=== PATIENT | female | born 1985 | race Caucasian/White ===

== ENCOUNTER 2019-12-24 14:27 | Emergency (ER) | payer OTHER, SELFPAY ==
[2019-12-24 15:21] VITALS: BP 124/73; PULSE 70; RESP 16; TEMP 36.8; O2SAT 100; BMI 21.7
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
[2019-12-24] MEDS: dexAMETHasone 2 MG TABLET 10 MG PO (16:34)
== END 2019-12-24 16:41 | disposition home or self-care (01) ==
PROVIDERS: Emergency Provider Emergency Medicine; PCP Internal Medicine
DX: S10.10XA Unspecified superficial injuries of throat, initial encounter (principal); M54.2 Cervicalgia; Y04.8XXA Assault by other bodily force, initial encounter; Y93.9 Activity, unspecified; Y92.219 Unspecified school as the place of occurrence of the external cause; Y99.9 Unspecified external cause status
CPT/HCPCS: 70490; 99283; 99284; J8540

== ENCOUNTER 2020-02-11 09:23 | Outpatient (REF) | payer OTHER, SELFPAY | END 2020-02-11 09:24 | disposition home or self-care (01) | LOC: HO.LAB 09:23 | PROVIDERS: Visit Provider Nurse Practitioner Family | DX: J06.9 Acute upper respiratory infection, unspecified (principal); Z20.828 Contact with and (suspected) exposure to other viral communicable diseases | CPT/HCPCS: U0003 ==

== ENCOUNTER 2020-05-26 08:07 | Outpatient (REF) | payer OTHER, SELFPAY ==
[2020-05-29 01:26] LABS: HPV mRNA E6/E7 rflx Not Detected (Not Detected)
== END 2020-05-26 08:08 | disposition home or self-care (01) ==
LOC: HO.LAB 08:07
PROVIDERS: PCP Internal Medicine; Visit Provider Advanced Practice Midwife
DX: Z01.419 Encounter for gynecological examination (general) (routine) without abnormal findings (principal); Z11.51 Encounter for screening for human papillomavirus (HPV)
CPT/HCPCS: 36415; 87624; 88142

== ENCOUNTER 2020-07-08 10:14 | Outpatient (REF) | payer OTHER, SELFPAY ==
[2020-07-08 11:25] LABS: MANUAL DIFF FLAG NO
[2020-07-08 11:37] LABS: Basophils Percent Auto 0.2 % (0-2); Eosinophils Absolute Auto 0.2 X10*3/uL (0.0-0.4); Hematocrit 38.7 % (37-47); Hemoglobin 13.1 g/dl (12.0-16.0); Lymphocytes Absolute Auto 1.4 X10*3/uL (1.2-4.9); Lymphocytes Percent Auto 33.7 % (20-40); Mean Corpuscular HGB Conc 33.9 g/dl (31.0-35.0); Mean Corpuscular Hemoglobin 30.5 pg (27.0-33.0); Monocytes Absolute Auto 0.5 X10*3/uL (0.1-1.2); Monocytes Percent Auto 12.9 % (2-11); Neutrophils Percent Auto 49.2 % (45-73); Platelet Count 212 X10*3/uL (160-400); Red Cell Distribution Width 11.7 % (11.0-16.0)
[2020-07-08 12:19] LABS: TSH reflex Free T4 1.39 uIU/mL (0.32-4.0)
[2020-07-08 12:22] LABS: Alanine Aminotransferase 12 U/L (0-31); Albumin Level 4.9 g/dL (3.5-5.0); Alkaline Phosphatase 43 U/L (39-117); Anion Gap 12 (12-20); Aspartate Amino Transferase 17 U/L (5-31); Bilirubin Direct 0.3 mg/dL (0.0-0.5); Bilirubin Total 0.5 mg/dL (0.0-1.0); Blood Urea Nitrogen 12 mg/dL (9-16); Calcium 9.6 mg/dL (8.4-10.2); Carbon Dioxide 27 mmol/L (22-29); Chloride 105 mmol/L (96-108); Cholesterol 175 mg/dL; Estimated Glomerular Filt Rate > 60; Glucose Fasting 81 mg/dL (60-99); HDL Cholesterol 108 mg/dL; LDL Cholesterol Calculated 58 mg/dl; Potassium 4.1 mmol/L (3.3-5.1); Sodium 140 mmol/L (135-145); Total Protein 7.6 g/dL (6.5-8.0); Triglycerides 46 mg/dL
== END 2020-07-08 10:15 | disposition home or self-care (01) ==
LOC: HO.HMGCLDS 10:14
PROVIDERS: PCP Internal Medicine; Visit Provider Internal Medicine
DX: Z00.01 Encounter for general adult medical examination with abnormal findings (principal); R07.9 Chest pain, unspecified; R10.13 Epigastric pain; R21 Rash and other nonspecific skin eruption; Z91.09 Other allergy status, other than to drugs and biological substances
CPT/HCPCS: 36415; 80048; 80053; 80061; 80076; 84443; 85025; 86787

== ENCOUNTER 2021-03-01 12:01 | Outpatient (REF) | payer OTHER, SELFPAY ==
[2021-03-01 13:16] LABS: Influenza A PCR NEGATIVE (Negative); Influenza B PCR NEGATIVE (Negative); Resp Syncy Virus RNA Qual PCR NEGATIVE (Negative); SARS COV2 PCR INHOUSE POSITIVE (Negative)
== END 2021-03-01 12:02 | disposition home or self-care (01) ==
LOC: HO.LNP 12:01
PROVIDERS: Visit Provider Physician Assistant
DX: Z20.822 Contact with and (suspected) exposure to COVID-19 (principal)
CPT/HCPCS: 0241U

== ENCOUNTER 2022-01-11 09:49 | Outpatient (REF) | payer OTHER, SELFPAY ==
[2022-01-14 14:07] LABS: Transglutaminase Ab IgG <1.0 U/mL; Transglutaminase IgA <1.0 U/mL
== END 2022-01-11 09:50 | disposition home or self-care (01) ==
LOC: HO.LAB 09:49
PROVIDERS: PCP Internal Medicine; Visit Provider Nurse Practitioner Family
DX: R10.9 Unspecified abdominal pain (principal)
CPT/HCPCS: 36415; 86364

== ENCOUNTER 2022-01-12 17:12 | Outpatient (REF) | payer OTHER, SELFPAY ==
[2022-01-14 13:32] LABS: H Pylori Breath Test Negative (Negative)
== END 2022-01-12 17:13 | disposition home or self-care (01) ==
LOC: HO.LNP 17:12
PROVIDERS: Visit Provider Nurse Practitioner Family
DX: Z11.2 Encounter for screening for other bacterial diseases (principal)
CPT/HCPCS: 83013

== ENCOUNTER 2022-02-03 08:46 | Outpatient (REF) | payer OTHER, SELFPAY ==
--- NOTE | ~2022-02-03 | XR_ITS ---
EXAMINATION: XR CHEST CLINICAL INFORMATION: Acute bronchitis. COMPARISON: Chest radiograph dated 06/13/2014. TECHNIQUE: 2 views of the chest were obtained. FINDINGS: No significant abnormality is noted involving the heart, lungs, mediastinum, bony thorax or soft tissues. XR/XR chest 2V IMPRESSION: No acute cardiopulmonary process.
[2022-02-03 12:21] LABS: Influenza A PCR NEGATIVE (Negative); Influenza B PCR NEGATIVE (Negative); Resp Syncy Virus RNA Qual PCR POSITIVE (Negative); SARS COV2 PCR INHOUSE NEGATIVE (Negative)
== END 2022-02-03 08:47 | disposition home or self-care (01) ==
LOC: HO.HMGCX 08:46
PROVIDERS: PCP Internal Medicine; Visit Provider Internal Medicine
DX: Z20.822 Contact with and (suspected) exposure to COVID-19 (principal); J20.9 Acute bronchitis, unspecified; R09.89 Other specified symptoms and signs involving the circulatory and respiratory systems
CPT/HCPCS: 0241U; 71046

== ENCOUNTER 2022-12-09 07:31 | Outpatient (AMB) | payer OTHER, SELFPAY ==
--- NOTE | 2022-12-09 07:32 | MHC.PC.OV ---
Intake Visit Reasons: Med review Allergies soy Allergy (Intermediate, Verified 12/09/22 07:33) rash, fatigue Environmental Allergy (Unknown, Uncoded 12/09/22 07:33) Unknown Medication List - Last Reconciled 12/09/22 by Edilia Hernadez MD fexofenadine ([facility]) PO DAILY pantoprazole 40 mg PO DAILY Tobacco use date assessed: 12/09/22 Dental Screening Dental Screen Date: 12/09/22 Did you have a dental visit in the last 12 months?: Yes Did you have a dental problem in the last 6 months where you did not have access to dental care?: No Was dental information given to patient?: Patient has dentist HPI Med review HPI Details Patient is 37-year-old female this is a telemedicine video conference medication refill Patient was last seen March of this year, reviewing that visit note I see that she was seeing a pyroglazer and taking pantoprazole 40 mg through them They recommended that patient have EGD done but patient was anxious about it and she had never went. She also continued to drink alcohol but not that much. We talked about toxic effects of alcohol it will help if she can stop drinking altogether. Her dyspepsia symptoms are stable at 40 mg pantoprazole she would like to cut down the dose to 20 and see if that is enough as well. I have sent pantoprazole 20 mg for the patient We will book physical exam appointment in 6 months. [facility] Medical History History of RSV infection GERD (gastroesophageal reflux disease) History of cellulitis Surgical History No pertinent past surgical history Family History Father Heart disease CVD (cardiovascular disease) Mental health disorder Mother HTN (hypertension) Mental health disorder Maternal Grandmother Cancer of kidney Maternal Grandfather Unknown family medical history Paternal Grandmother Heart disease Paternal Grandfather Heart disease Brother Substance use disorder Sister No problems noted. Social History Housing: House Alcohol intake: current Alcohol intake frequency: a few times a week Patient Tobacco Use Status: Former Tobacco user e-Cigarette/Vaping Use: Never Used service: No Current occupational status: employed Cognitive needs: No Hearing needs: No Vision needs: Yes Questionnaire PHQ-9 Over the last 2 weeks, how often have you been bothered by any of the following problems? 1. Little interest or pleasure in doing things: not at all 2. Feeling down, depressed, or hopeless: not at all 3. Trouble falling or staying asleep, or sleeping too much: not at all 4. Feeling tired or having little energy: not at all 5. Poor appetite or overeating: not at all 6. Feeling bad about yourself - or that you are a failure or have let yourself or your family down: not at all 7. Trouble concentrating on things, such as reading the newspaper or watching television: not at all 8. Moving or speaking so slowly that other people could have noticed. Or the opposite - being so fidgety or restless that you have been moving around a lot more than usual: not at all 9. Thoughts that you would be better off or of hurting yourself in some way: not at all Total score: 0 Depression Screening Interpretation: Negative Depression Screening Done: Yes 32499 - PHQ-9 Billing: Yes Source: Developed by Drs. Abdifatah Caputo, Carolyn Murdock, Derek Fiore and colleagues, with an educational ariela from [employer]. Thrive Questionnaire Date Thrive assessed: 12/09/22 I am a: Patient What is your living situation today?: I have a steady place to live Within the past 12 months, did the food you bought not last and you didn't have the money to get more?: Never true Within the past 12 months, did you worry whether your food would run out before you got money to buy more?: Never true Do you have trouble paying for medicines?: No Do you have trouble getting transportation to medical appointments?: No Do you have trouble paying your heating and electricity bill?: No Do you have trouble taking care of your child, family member or friend?: No Do you have trouble with day-to-day activities such as bathing, preparing meals, shopping, managing finances, etc.?: No Are you currently unemployed and looking for a job?: No Are you interested in more education?: No Currently or been in a relationship where the following occur: no concerns reported AUDIT C Alcohol Use Questionnaire (AUDIT-C) 1. How often do you have a drink containing alcohol?: 2-4 times a month 2. How many drinks containing alcohol do you have on a typical day when you are drinking?: 1 or 2 3. How often do you have six or more drinks on one occasion?: Never Total Score: 2 RENEE-7 AMB Questionnaire RENEE-7 Date RENEE - 7 assessed: 12/09/22 Feeling nervous, anxious, or on edge: 0 = Not at all Not being able to stop or control worryin = Not at all Worrying too much about different things: 0 = Not at all Trouble relaxin = Not at all Being so restless that it is hard to sit still: 0 = Not at all Becoming easily annoyed or irritable: 0 = Not at all Feeling afraid as if something awful might happen: 0 = Not at all Total RENEE-7 score (0-4 normal; 5-9 mild; 10-14 moderate; 15-21 severe): 0 Source: Developed by Drs. Abdifatah Caputo, Carolyn Murdock, Derek Fiore and colleagues, with an educational ariela from [employer]. RENEE-7 Assessment Billing RENEE-7 Assessment Tool: RENEE-7 Assessment 21225 Review of Systems Const Denies chills and Denies fever(s) ENT Denies epistaxis and Denies nasal discharge Card Denies chest pain Resp Denies chest congestion, Denies cough and Denies hemoptysis GI Denies diarrhea and Denies nausea Skin/Breast Denies rash Neuro Reports no additional complaints Psych Reports no additional complaints Endo Reports no additional complaints Physical exam (Primary Care) Tobacco/Smoking Status: Tobacco use Status Tobacco use date assessed 12/09/22 12/09/22 07:35 Patient Tobacco Use Status Former Tobacco user 12/09/22 07:35 e-Cigarette/Vaping Use Never Used 12/09/22 07:35 Depression Screening Interpretation: Negative Thrive Assessment: Date of Thrive Assessment Date Thrive assessed 12/09/22 12/09/22 07:35 Currently or been in a relationship where the following occur: no concerns reported Telehealth Telehealth Location of provider rendering services: practice address Location of patient: address on file Patient Identification confirmed using: Name, : Yes Telehealth method: video Patient verbally consented to treatment: Yes Patient verbally consented to billing insurance company: Yes Patient informed of any privacy concerns related to visit: Yes Minutes spent on Phone/Video with Pt.: 14 Assessment and Plan Assessment & Plan (1) Chronic GERD: Code(s): K21.9 - Gastro-esophageal reflux disease without esophagitis (2) Alcohol cessation counseling: Code(s): Z71.41 - Alcohol abuse counseling and surveillance of alcoholic (3) Anxiety, generalized: Code(s): F41.1 - Generalized anxiety disorder Plan Patient is 37-year-old female this is a telemedicine video conference medication refill Patient was last seen March of this year, reviewing that visit note I see that she was seeing a pyroglazer and taking pantoprazole 40 mg through them They recommended that patient have EGD done but patient was anxious about it and she had never went. She also continued to drink alcohol but not that much. We talked about toxic effects of alcohol it will help if she can stop drinking altogether. I did offer her medication for anxiety but patient is reluctant to take that at this point she will get back to me if she germania mine. Her dyspepsia symptoms are stable at 40 mg pantoprazole she would like to cut down the dose to 20 and see if that is enough as well. I have sent pantoprazole 20 mg for the patient We will book physical exam appointment in 6 months. Medications: Changed From pantoprazole take one tablet half an hour before breakfast 40 mg PO DAILY 30 tabs 0RF K21.9 - Gastro-esophageal reflux disease without esophagitis To pantoprazole take one tablet half an hour before breakfast 20 mg PO DAILY 90 tabs 0RF K21.9 - Gastro-esophageal reflux disease without esophagitis Coding Level of Care Code Est Pt Level 3 (48571) Diagnoses Chronic GERD K21.9 Alcohol cessation counseling Z71.41 Anxiety, generalized F41.1 Additional Codes RENEE-7 Assessment Billing - RENEE-7 Assessment Tool: RENEE-7 Assessment 49267 ([id number])
== END 2022-12-09 09:33 | disposition home or self-care (01) ==
PROVIDERS: PCP Internal Medicine; Visit Provider Internal Medicine
DX: K21.9 Gastro-esophageal reflux disease without esophagitis (principal); Z71.41 Alcohol abuse counseling and surveillance of alcoholic; F41.1 Generalized anxiety disorder
CPT/HCPCS: 99213

== ENCOUNTER 2022-12-27 08:08 | Outpatient (AMB) | payer OTHER, SELFPAY ==
[2022-12-27 08:47] VITALS: BP 120/60; PULSE 83; TEMP 36.8; O2SAT 99; BMI 21.5
--- NOTE | 2022-12-27 08:47 | MHC.OFFWIV ---
Intake Vital Signs 12/27/22 08:47 Height 5 ft 6 in Weight 133 lb BMI 21.5 BP 120/60 Blood Pressure Location Lt brachial Position Sitting Pulse 83 Pulse Source Pulse Oximeter Temp 98.2 F Temp Source Temporal Artery Scan Pulse Oximetry (%) 99 Intake Visit Reasons: EP Cold Symptoms Intake Note: pt is here for c/o sore throat, body aches Patient Tobacco Use Status: Former Tobacco user Allergies soy Allergy (Intermediate, Verified 12/27/22 09:13) rash, fatigue Environmental Allergy (Unknown, Uncoded 12/27/22 09:13) Unknown Medication List - Last Reconciled 12/27/22 by Bro Gonzalez MD fexofenadine ([facility]) PO DAILY pantoprazole 20 mg PO DAILY Do you need a note to return to daycare/school/sports/work: Yes HPI EP Cold Symptoms HPI Details Patient presents for a sick visit. Reporting symptoms of sinus congestion, sore throat and difficulty swallowing. Low-grade fever. No family member is sick. No recent travel. Patient reports symptoms of malaise and fatigue. [facility] Medical History History of RSV infection GERD (gastroesophageal reflux disease) History of cellulitis Surgical History No pertinent past surgical history Family History Father Heart disease CVD (cardiovascular disease) Mental health disorder Mother HTN (hypertension) Mental health disorder Maternal Grandmother Cancer of kidney Maternal Grandfather Unknown family medical history Paternal Grandmother Heart disease Paternal Grandfather Heart disease Brother Substance use disorder Sister No problems noted. Social History Housing: House Alcohol intake: current Alcohol intake frequency: a few times a week Patient Tobacco Use Status: Former Tobacco user e-Cigarette/Vaping Use: Never Used service: No Current occupational status: employed Cognitive needs: No Hearing needs: No Vision needs: Yes Physical Exam Vital Signs: Last Vital Signs Temp 98.2 F 12/27/22 08:47 Pulse 83 12/27/22 08:47 BP 120/60 12/27/22 08:47 Pulse Ox 99 12/27/22 08:47 BMI result Body Mass Index 21.5 Const General: cooperative and healthy appearing Nutritional Appearance: well nourished Orientation/consciousness: patient oriented x3 Limitations: no limitations HEENT Head: Yes normal to inspection Eyes General: appearance normal, both eyes and all related structures Neck Neck: Yes normal visual inspection Chest Chest palpation & inspection: normal palpation of entire chest wall Resp Effort & Inspection: normal respiratory effort Neuro General: patient oriented x3 Results AMB Rapid Strep AMB Rapid Strep Negative Last Edit by José Luis Walton CMA on 12/27/22 09:04 Results Reviewed Results Reviewed: Laboratory Last Values Strep Scn [facility] Negative 12/27/22 08:55 Assessment & Plan Assessment & Plan (1) URI (upper respiratory infection): Code(s): J06.9 - Acute upper respiratory infection, unspecified Plan: Antibiotics ordered. Increase fluid intake. Tylenol for aches and pains. If symptoms worsen, follow-up here for a recheck. Orders: Orders AMB Rapid Strep Screen Today Z13.9 - Encounter for screening, unspecified Coding Level of Care Code Est Pt Level 3 (25582) Diagnoses URI (upper respiratory infection) J06.9
== END 2022-12-27 09:18 | disposition home or self-care (01) ==
PROVIDERS: PCP Internal Medicine; Visit Provider Internal Medicine
DX: J06.9 Acute upper respiratory infection, unspecified (principal); Z13.9 Encounter for screening, unspecified
CPT/HCPCS: 87880; 99213

== ENCOUNTER 2023-06-27 13:56 | Outpatient (AMB) | payer OTHER, SELFPAY ==
--- NOTE | 2023-06-27 13:59 | MHC.PC.OV ---
Vital Signs 06/27/23 14:00 Height 5 ft 6 in Weight 136 lb 2 oz BMI 22.0 BP 124/80 Blood Pressure Location Rt brachial Position Sitting Pulse 83 Pulse Source Pulse Oximeter Pulse Oximetry (%) 96 Oxygen Delivery Method Room Air Intake Visit Reasons: Annual PE Allergies soy Allergy (Intermediate, Verified 06/27/23 14:00) rash, fatigue Environmental Allergy (Unknown, Uncoded 12/27/22 09:13) Unknown Medication List - Last Reconciled 06/27/23 by Edilia Hernadez MD fexofenadine (Corinna Allergy) PO DAILY pantoprazole 20 mg PO DAILY Tobacco use date assessed: 06/27/23 Dental Screening Dental Screen Date: 06/27/23 Did you have a dental visit in the last 12 months?: Yes Did you have a dental problem in the last 6 months where you did not have access to dental care?: No Was dental information given to patient?: Patient has dentist HPI Annual PE HPI Details Patient is a 38 year female came in for physical examination Patient is dealing with drug addiction in brother and has applied for custody of 5-year-old son She said that she is feeling to try medication for anxiety as 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 because she clench her teeth a lot She agreed to take escitalopram 5 mg daily Allergies are manageable with the help of Corinna GERD is stable with pantoprazole 20 mg Lab order placed to be done fasting On examination she has a lump on right breast which is chronic however she is at that age where she will be having mammograms now I have also ordered diagnostic mammogram and ultrasound We will book a telemedicine visit in 3 months to follow-up FORMERLY [facility], [facility] Medical History History of RSV infection GERD (gastroesophageal reflux disease) History of cellulitis Surgical History No pertinent past surgical history Family History Father Heart disease CVD (cardiovascular disease) Mental health disorder Mother HTN (hypertension) Mental health disorder Maternal Grandmother Cancer of kidney Maternal Grandfather Unknown family medical history Paternal Grandmother Heart disease Paternal Grandfather Heart disease Brother Substance use disorder Sister No problems noted. Social History Housing: House Alcohol intake: current Alcohol intake frequency: a few times a week Patient Tobacco Use Status: Former Tobacco user e-Cigarette/Vaping Use: Never Used service: No Current occupational status: employed Cognitive needs: No Hearing needs: No Vision needs: Yes Questionnaire PHQ-9 Over the last 2 weeks, how often have you been bothered by any of the following problems? 1. Little interest or pleasure in doing things: several days 2. Feeling down, depressed, or hopeless: more than half the days 3. Trouble falling or staying asleep, or sleeping too much: nearly every day 4. Feeling tired or having little energy: nearly every day 5. Poor appetite or overeating: not at all 6. Feeling bad about yourself - or that you are a failure or have let yourself or your family down: several days 7. Trouble concentrating on things, such as reading the newspaper or watching television: several days 8. Moving or speaking so slowly that other people could have noticed. Or the opposite - being so fidgety or restless that you have been moving around a lot more than usual: several days 9. Thoughts that you would be better off or of hurting yourself in some way: not at all Total score: 12 Depression Screening Interpretation: Positive Depression Screening Follow-up: New Medication prescribed Depression Screening Done: Yes 39549 - PHQ-9 Billing: Yes Source: Developed by Drs. Abdifatah Caputo, Carolyn Murdock, Derek Fiore and colleagues, with an educational ariela from [employer]. Thrive Questionnaire Date Thrive assessed: 06/27/23 I am a: Patient What is your living situation today?: I have a steady place to live Within the past 12 months, did the food you bought not last and you didn't have the money to get more?: Never true Within the past 12 months, did you worry whether your food would run out before you got money to buy more?: Never true Do you have trouble paying for medicines?: No Do you have trouble getting transportation to medical appointments?: No Do you have trouble paying your heating and electricity bill?: No Do you have trouble taking care of your child, family member or friend?: No Do you have trouble with day-to-day activities such as bathing, preparing meals, shopping, managing finances, etc.?: No Are you currently unemployed and looking for a job?: No Are you interested in more education?: No Please select the resources that you would like help with: None Currently or been in a relationship where the following occur: no concerns reported THRIVE Score: 0 AUDIT C Alcohol Use Questionnaire (AUDIT-C) 1. How often do you have a drink containing alcohol?: Monthly or less 2. How many drinks containing alcohol do you have on a typical day when you are drinking?: 1 or 2 3. How often do you have six or more drinks on one occasion?: Never Total Score: 1 Score Reviewed/Action Taken: Yes RENEE-7 AMB Questionnaire RENEE-7 Date RENEE - 7 assessed: 06/27/23 Feeling nervous, anxious, or on edge: 3 = Nearly every day Not being able to stop or control worryin = Nearly every day Worrying too much about different things: 3 = Nearly every day Trouble relaxin = Nearly every day Being so restless that it is hard to sit still: 2 = More than half the days Becoming easily annoyed or irritable: 2 = More than half the days Feeling afraid as if something awful might happen: 3 = Nearly every day Total RENEE-7 score (0-4 normal; 5-9 mild; 10-14 moderate; 15-21 severe): 19 Source: Developed by Drs. Abdifatah Caputo, Carolyn Murdock, Derek Fiore and colleagues, with an educational ariela from [employer]. RENEE-7 Assessment Billing RENEE-7 Assessment Tool: RENEE-7 Assessment 98213 Review of Systems Const Denies chills, Denies fever(s) and Denies headache(s) Eyes Denies blurry vision ENT Denies headache(s), Denies nasal discharge, Denies nasal obstruction, Denies odynophagia and Denies sinus pain Card Denies chest pain at rest and Denies chest pain with activity Resp Denies cough and Denies hemoptysis GI Denies diarrhea, Denies odynophagia, Denies vomiting and Denies hematemesis Reports as per HPI Musc Denies abnormal gait Skin/Breast Reports as per HPI Neuro Denies Neuro-related abnormal movements, Denies Abnormal speech present, Denies abnormal gait, Denies headache(s) and Denies Sensory deficit (Neuro) Psych Denies mood swings and Denies paranoia Endo Reports as per HPI Real/Lymph Reports as per HPI Aller/Immun Reports as per HPI Physical exam (Primary Care) Vital Signs: Last Vital Signs Pulse 83 06/27/23 14:00 BP 124/80 06/27/23 14:00 Pulse Ox 96 06/27/23 14:00 Oxygen Delivery Method Room Air 06/27/23 14:00 BMI result Body Mass Index 22.0 Tobacco/Smoking Status: Tobacco use Status Tobacco use date assessed 06/27/23 06/27/23 14:02 Patient Tobacco Use Status Former Tobacco user 06/27/23 14:02 e-Cigarette/Vaping Use Never Used 06/27/23 14:02 PHQ-9: PHQ-9 Score PHQ-9: Total score 12 06/27/23 14:08 Depression Screening Interpretation: Positive Depression Screening Follow-up: New Medication prescribed Thrive Assessment: Date of Thrive Assessment Date Thrive assessed 06/27/23 06/27/23 14:08 Currently or been in a relationship where the following occur: no concerns reported Const General: cooperative, comfortable and no acute distress Orientation/consciousness: patient oriented x3 HENMT Head: Yes normocephalic and Yes atraumatic Eyes General: appearance normal, both eyes and all related structures Pupils: Equal, round and reactive pupils present EOM: EOMs intact bilaterally Neck Neck: Yes supple and No lymphadenopathy Thyroid: Thyroid normal Lymphatic: no lymphadenopathy noted Chest Chest/axillae images: 1. Lump felt Resp Effort & Inspection: normal respiratory effort and able to speak in complete sentences Auscultation: clear to auscultation bilaterally Cardio Heart sounds: S1 normal heart sound present and S2 normal heart sound present GI Palpation (GI): Soft to palpation and nontender Auscultation: normal bowel sounds General: Yes no CVA tenderness Back/Spine/Pelvis Back: no CVA tenderness Skin General skin exam: elasticity normal and turgor normal Neuro General: patient oriented x3 and gait normal Cranial nerves: Yes Equal, round and reactive pupils present Speech: No Abnormal speech present Sensory Exam: No Sensory deficit (Neuro) Coordination: tandem gait normal and Romberg test negative Extrem General: Yes normal exam except as noted and No edema Assessment and Plan Assessment & Plan (1) Encounter for general adult medical examination with abnormal findings: Code(s): Z00.01 - Encounter for general adult medical examination with abnormal findings (2) Breast lump on right side at 11 o'clock position: Code(s): N63.11 - Unspecified lump in the right breast, upper outer quadrant (3) Environmental allergies: Code(s): Z91.09 - Other allergy status, other than to drugs and biological substances (4) Rash: Code(s): R21 - Rash and other nonspecific skin eruption (5) Anxiety, generalized: Code(s): F41.1 - Generalized anxiety disorder Plan Patient is a 38 year female came in for physical examination Patient is dealing with drug addiction in brother and has applied for custody of 5-year-old son She said that she is feeling to try medication for anxiety as 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 because she clench her teeth a lot She agreed to take escitalopram 5 mg daily Allergies are manageable with the help of Corinna GERD is stable with pantoprazole 20 mg Lab order placed to be done fasting On examination she has a lump on right breast which is chronic however she is at that age where she will be having mammograms now I have also ordered diagnostic mammogram and ultrasound We will book a telemedicine visit in 3 months to follow-up Orders: Orders MM tomosynthesis screening BI Today N63.11 - Unspecified lump in the right breast, upper outer quadrant MM tomosynthesis diagnostic RT Today N63.11 - Unspecified lump in the right breast, upper outer quadrant Complete Blood Count Auto Diff Today F41.1 - Generalized anxiety disorder, R21 - Rash and other nonspecific skin eruption, Z00.01 - Encounter for general adult medical examination with abnormal findings, Z91.09 - Other allergy status, other than to drugs and biological substances Lipid Panel Today F41.1 - Generalized anxiety disorder, R21 - Rash and other nonspecific skin eruption, Z00.01 - Encounter for general adult medical examination with abnormal findings, Z91.09 - Other allergy status, other than to drugs and biological substances US breast RT complete Today N63.11 - Unspecified lump in the right breast, upper outer quadrant Comprehensive [place]. Panel Fast Today F41.1 - Generalized anxiety disorder, R21 - Rash and other nonspecific skin eruption, Z00.01 - Encounter for general adult medical examination with abnormal findings, Z91.09 - Other allergy status, other than to drugs and biological substances TSH reflex Free T4 Today F41.1 - Generalized anxiety disorder, R21 - Rash and other nonspecific skin eruption, Z00.01 - Encounter for general adult medical examination with abnormal findings, Z91.09 - Other allergy status, other than to drugs and biological substances Medications: New escitalopram oxalate (Lexapro) 5 mg PO DAILY 30 tabs 0RF Coding Level of Care Code Est Pt Level 3 (74048) Est Pt Prev Care 40-64y(70794) Diagnoses Encounter for general adult medical examination with abnormal findings Z00.01 Breast lump on right side at 11 o'clock position N63.11 Environmental allergies Z91.09 Rash R21 Anxiety, generalized F41.1 Additional Codes RENEE-7 Assessment Billing - RENEE-7 Assessment Tool: RENEE-7 Assessment 36994 ([id number])
[2023-06-27 14:00] VITALS: BP 124/80; PULSE 83; O2SAT 96; BMI 22.0
== END 2023-06-27 14:31 | disposition home or self-care (01) ==
PROVIDERS: PCP Internal Medicine; Visit Provider Internal Medicine
DX: Z00.01 Encounter for general adult medical examination with abnormal findings (principal); N63.11 Unspecified lump in the right breast, upper outer quadrant; F41.1 Generalized anxiety disorder; Z91.09 Other allergy status, other than to drugs and biological substances; R21 Rash and other nonspecific skin eruption
CPT/HCPCS: 96127; 99213; 99396

== ENCOUNTER 2023-08-03 14:53 | Outpatient (REF) | payer OTHER, SELFPAY ==
--- NOTE | ~2023-08-03 | US_ITS ---
EXAMINATION: MM DIAGNOSTIC DIGITAL BREAST TOMOSYNTHESIS, BILATERAL US BREAST LIMITED, RIGHT MAMMOGRAPHY: CLINICAL INFORMATION: 38-year-old female complaining of palpable lump right breast upper outer quadrant approximately 11:00. No additional complaints. COMPARISON: Mammography: 06/26/2015 diagnostic mammogram and right breast ultrasound. TECHNIQUE: Digital breast tomosynthesis is performed in both the craniocaudal and mediolateral oblique views along with computer-aided detection (CAD). Synthesized 2D images are generated from the tomosynthesis. In addition, full-field right 3-D mediolateral view was obtained, as well as small paddle spot compression 3-D views of the right breast in the CC and MLO projections, overlying the area of concern. This was followed by targeted right ultrasound. FINDINGS: The breasts are extremely dense, which lowers the sensitivity of mammography (ACR BI-RADS breast composition Category d). BB marker has been placed by the technologist in the upper outer quadrant of the right breast, anterior one third, marking the area of palpable concern with the aid of the patient. There is no definite underlying mammographic mass, abnormal calcifications, or area of architectural distortion. Only heterogeneously dense breast parenchyma is identified. Otherwise, there are no suspicious masses, suspicious grouped calcifications, or areas of architectural distortion in either breast. The extremely dense parenchymal pattern is stable from the prior exam of 2016. There is no skin or axillary suspicious finding. ULTRASOUND: CLINICAL INFORMATION: As above. COMPARISON: 06/26/2015. TECHNIQUE: Targeted sonographic evaluation right breast was performed using a high frequency linear transducer. Attention was given to the 10:00 to 1:00 axis right breast to include the area of palpable concern at 11:00. Selected archived documentation. FINDINGS: RIGHT BREAST: There is normal-appearing extremely dense breast tissue present. There is no mass, cystic abnormality, abnormal shadowing, or architectural abnormality in the region of palpable concern right breast 11:00 or elsewhere in the upper outer quadrant. US/US breast RT limited mamm only IMPRESSION: -There are no findings suggestive of malignancy in either breast. -Palpable abnormality right breast 11:00 axis shows no mammographic or sonographic correlate. Only normal extremely dense breast tissue is identified. Recommend clinical management -Otherwise, recommend resuming routine annual screening mammography. -In patients with this breast density, screening breast ultrasound may serve as a valuable screening adjunct, depending on risk factors and usually performed 6 months in between screening mammography exams. OVERALL ASSESSMENT: Mammography: BI-RADS 1 - Negative Ultrasound: BI-RADS 1 - Negative RECOMMENDATION: 1. Patient should be managed based on the clinical impression. 2. Otherwise, routine annual screening mammography. Results were provided to the patient at time of visit by the technologist. This patient's information was entered into a reminder system with a target due date for their next mammogram.
== END 2023-08-03 14:54 | disposition home or self-care (01) ==
LOC: HO.MAMMO 14:53
PROVIDERS: PCP Internal Medicine; Visit Provider Internal Medicine
DX: N63.11 Unspecified lump in the right breast, upper outer quadrant (principal)
CPT/HCPCS: 76642; 77062; 77066

== ENCOUNTER → 2023-08-03 15:30 | Outpatient (BNV) | payer OTHER, SELFPAY | PROVIDERS: PCP Internal Medicine; Visit Provider Radiology Diagnostic Radiology | DX: R92.333 Mammographic heterogeneous density, bilateral breasts (principal) | CPT/HCPCS: 76642; 77062; 77066 ==

== ENCOUNTER 2023-08-30 08:50 | Outpatient (AMB) | payer OTHER, SELFPAY ==
--- NOTE | 2023-08-30 09:01 | AM.OFFWIN_ITS ---
Intake Vital Signs 08/30/23 09:02 Height 5 ft 6 in Weight 134 lb BMI 21.6 BP 104/68 Blood Pressure Location Lt brachial Position Sitting Pulse 72 Pulse Source Pulse Oximeter Temp 98.1 F Temp Source Oral Pulse Oximetry (%) 97 Oxygen Delivery Method Room Air Intake Visit Reasons: EP ?UTI Intake Note: pt here c/o ? UTI. Symptoms: Urgency, burning. Started Sunday 08/27 Patient Tobacco Use Status: Former Tobacco user Allergies soy Allergy (Intermediate, Verified 08/30/23 09:02) rash, fatigue Environmental Allergy (Unknown, Uncoded 08/30/23 09:02) Unknown Do you need a note to return to daycare/school/sports/work: Yes HPI HPI Comments History of Present Illness Details 38 y/o female patient who presents to [facility] in clinic with c/o Urinary symptoms associated with vaginal discharge, odor and burning with urination since August 27. Sexually active with 1 male partner no concerns for STIs. FORMERLY [facility] Medical History History of RSV infection GERD (gastroesophageal reflux disease) History of cellulitis Surgical History No pertinent past surgical history Family History Father Heart disease CVD (cardiovascular disease) Mental health disorder Mother HTN (hypertension) Mental health disorder Maternal Grandmother Cancer of kidney Maternal Grandfather Unknown family medical history Paternal Grandmother Heart disease Paternal Grandfather Heart disease Brother Substance use disorder Sister No problems noted. Social History Housing: House Alcohol intake: current Alcohol intake frequency: a few times a week Patient Tobacco Use Status: Former Tobacco user e-Cigarette/Vaping Use: Never Used service: No Current occupational status: employed Cognitive needs: No Hearing needs: No Vision needs: Yes Review of Systems Const All systems reviewed & are unremarkable except as noted in HPI and below Physical Exam Vital Signs: Last Vital Signs Temp 98.1 F 08/30/23 09:02 Pulse 72 08/30/23 09:02 BP 104/68 08/30/23 09:02 Pulse Ox 97 08/30/23 09:02 Oxygen Delivery Method Room Air 08/30/23 09:02 BMI result Body Mass Index 21.6 Const General: comfortable and no acute distress Nutritional Appearance: thin Orientation/consciousness: patient oriented x3 GI Palpation (GI): Soft to palpation, not firm, nontender, no guarding and No hepatosplenomegaly present External Female Exam: erythema and externally tender Speculum Exam - Vagina: abnormal vaginal discharge white, malodorous and frothy and erythematous Speculum Exam - Cervix: normal palpation and Cervical os open Bimanual exam- vagina & uterus: normal bimanual exam and normal palpation OB/external & speculum: Cervical os open Neuro General: patient oriented x3, gait normal and moves all extremities Psych Speech and movement: Normal speech and movement present Results AMB Urinalysis, Automated UA Leukoctes 15 Inez/uL Last Edit by Hernán Fink CMA on 08/30/23 09:17 UA Nitrite Negative Last Edit by Hernán Fink CMA on 08/30/23 09:17 UA Urobilinogen 0.2 mg/dL Last Edit by Hernán Fink CMA on 08/30/23 09:17 UA Protein 15 mg/dL Last Edit by Hernán Fink CMA on 08/30/23 09:17 UA pH 6.0 Last Edit by Hernán Fink CMA on 08/30/23 09:17 UA Blood 10 Rayray/uL Last Edit by Hernán Fink CMA on 08/30/23 09:17 UA Specific [place] 1.015 Last Edit by Hernán Fink CMA on 08/30/23 09:17 UA Ketone Negative Last Edit by Hernán Fink CMA on 08/30/23 09:17 UA Bilirubin 0 mg/dL Last Edit by Hernán Fink CMA on 08/30/23 09:17 UA Glucose 0 mg/dL Last Edit by Hernán Fink CMA on 08/30/23 09:17 Results Reviewed Results Reviewed: Laboratory Last Values Urine pH (Auto) 6.0 08/30/23 09:15 Specific [place] (Auto) 1.015 08/30/23 09:15 Urine Protein (Auto) 15 mg/dL 08/30/23 09:15 Glucose (UA)(Auto) 0 mg/dL 08/30/23 09:15 Urine Ketones (Auto) Negative 08/30/23 09:15 Urine Blood (Auto) 10 Rayray/uL 08/30/23 09:15 Urine Nitrite (Auto) Negative 08/30/23 09:15 Urine Bilirubin (Auto) 0 mg/dL 08/30/23 09:15 Urine Urobilinogen (Auto) 0.2 mg/dL 08/30/23 09:15 Leukocyte Esterase (Auto) 15 Inez/uL 08/30/23 09:15 Assessment & Plan Assessment & Plan (1) Urinary tract infection symptoms: Code(s): R39.9 - Unspecified symptoms and signs involving the genitourinary system Plan: UTI vs Vaginitis. Pelvic exam consistent with VulvaVaginitis. No douching Urinate pre/post intercourse. Wipe from front to back Take medications as prescribed. RTC if not better. (2) Vaginitis and vulvovaginitis: Code(s): N76.0 - Acute vaginitis Plan: UTI vs Vaginitis. Pelvic exam consistent with VulvaVaginitis. No douching Urinate pre/post intercourse. Wipe from front to back Take medications as prescribed. RTC if not better. Orders: Orders AMB Urinalysis Automated Today Z13.9 - Encounter for screening, unspecified Medications: New fluconazole TAKE 1 TABLET NOW. TAKE SECOND DOSE IN 72 HOURS PRN. 150 mg PO DAILY 5 tabs 1RF Vaginal Itching N76.0 - Acute vaginitis metronidazole 0.75%(37.5mg/5gram) 1 appful vaginal BEDTIME 5 days 70 grams 0RF Vaginal itching N76.0 - Acute vaginitis Coding Level of Care Code Est Pt Level 4 (20180) Diagnoses Urinary tract infection symptoms R39.9 Vaginitis and vulvovaginitis N76.0 Time Spent (min) 20
[2023-08-30 09:02] VITALS: BP 104/68; PULSE 72; TEMP 36.7; O2SAT 97; BMI 21.6
== END 2023-08-30 09:40 | disposition home or self-care (01) ==
PROVIDERS: PCP Internal Medicine; Visit Provider Nurse Practitioner Family
DX: R39.9 Unspecified symptoms and signs involving the genitourinary system (principal); N76.0 Acute vaginitis
CPT/HCPCS: 81003; 99214

== ENCOUNTER 2025-01-01 14:54 | Outpatient (AMB) | payer OTHER, SELFPAY ==
--- NOTE | 2025-01-01 15:03 | A.OFFPC_ITS ---
Vital Signs 01/01/25 15:04 Height 5 ft 6 in Weight 144 lb BMI 23.2 BP 126/80 Blood Pressure Location Lt brachial Position Sitting Pulse 76 Pulse Source Pulse Oximeter Pulse Oximetry (%) 98 Intake Visit Reasons: Annual PE Allergies soy Allergy (Intermediate, Verified 01/01/25 15:03) rash, fatigue Environmental Allergy (Unknown, Uncoded 08/30/23 09:02) Unknown Medication List - Last Reconciled 01/01/25 by Edilia Hernadez MD pantoprazole 20 mg PO DAILY Tobacco use date assessed: 01/01/25 Dental Screening Dental Screen Date: 01/01/25 Did you have a dental visit in the last 12 months?: Yes Did you have a dental problem in the last 6 months where you did not have access to dental care?: No Was dental information given to patient?: Patient has dentist HPI Annual PE HPI Details History of Present Illness The patient is a 39-year-old female presenting for a physical examination. Insomnia: - The patient reports not sleeping well and only getting a few hours of sleep each night. - She identifies as a light sleeper and is often awakened by her , who al so has sleep difficulties, and her 5-year-old child who does not sleep through the night. - Once awake, she has trouble falling ba ck asleep. - She reports social alcohol use, which can disturb the sleep cycle. Perimenopausal disorder: - The patient believes she may be perime nopausal, citing symptoms such as weight gain, fatigue, lack of sleep, and increased irritability before and after her pe riod. - She has never had children. - Her periods are still occurring but goyal ve become irregular and are mostly light, with a couple of heavier episodes without abnormal clotting. Gastroesophageal reflux disease: - The patient takes pantoprazole for HUEY D symptoms, which are well-controlled with the medication. - She notices a return of symptoms if sh e forgets to take her medication. Urinary tract infection: - The patient reports having a current U TI for which she is taking antibiotics obtained from an urgent care visit. - She notes that she gets UTIs periodica lly. Skin lesion: - The patient has a mole she has had for a while and would like to have it evaluated by a aircraft sheet metal mechanic. - She is also noticing the development o f skin tags. Anxiety disorder: - The patient reports that her anxiety i s manageable and she is not currently seeing a therapist. Health Maintenance: - The patient is due for lab work, with her last set completed in 2020. - Her last mammogram was in July of the previous year. - She is due for an DYE HOUSE SUPERVISOR visit; her la st was three years ago. Medical History: - Gastroesophageal reflux disease - Recurrent urinary tract infections - Anxiety, managed - Chronic shoulder pain Social History: - Employment: Works as a special educati on teacher. - Substance use: Reports social alcohol consumption. - Family status: Lives with her and 5-year-old child. - Weight management: Reports weight gain despite her efforts. Family History: - Denies family history of breast proble ms. Health Maintenance - The patient is due for routine laborat ory studies; her last labs were from 2020. - The patient is due for a mammogram; he r last one was in July of the prior year. - The patient is due for an DYE HOUSE SUPERVISOR visit ; her last one was three years ago. - The patient has deferred her flu vacci ne until her current UTI is resolved. [place] [facility] - Patient was seen at an urgent care for her current UTI. - Referral provided to Dr. Keys at [facility] DYE HOUSE SUPERVISOR. - Referral provided to [facility]. Patient Instructions - You will be taking mirtazapine for sle ep. I am sending 30 tablets of the 15 mg dose. You can start with half a tablet to see how you feel, and take a full tablet if needed. - For premenstrual irritability, I am se nding a prescription for escitalopram . Take one tablet for the 10 days before your period starts. You can start with half a tablet. - Do not start both new medications at t he same time. Please start with the mirtazapine for sleep first. - Continue taking your antibiotics for t he UTI as directed by the urgent care. - Please get your lab work done after yo u finish your antibiotics. - I have placed an order for you to get a mammogram. - Please schedule a visit with an DYE HOUSE SUPERVISOR . I have recommended Dr. Keys at [facility]. - Please schedule an appointment with a aircraft sheet metal mechanic to have your skin mole checked. A referral has been sent to [facility]. - Be aware that drinking alcohol can darrian e your sleep worse. - You can wait to get your flu shot unti l after your UTI has cleared up. - Please schedule a follow-up appointmen t in about six weeks to review your lab results and see how you are doing on the new medications. Review of Systems. - General: No fever no chills - Neurological: No headaches no dizzin ess - Ear nose throat: No sore throat no hearing difficulty no ear pain - Cardiovascular: No syncope, no chest pain, no palpitations - Gastrointestinal: No nausea vomiting or diarrhea - Endocrine: No polyuria polydipsia no heat intolerance - Genitourinary: No dysuria - Skin: No new complaints Physical Exam General: Cooperative, healthy appearing, comfortable, no acute distress Orientation: Patient oriented x3 Head: Normal to inspection Ears: Within normal limit visually Nose: Normal external nose present Face and sinus: Normal facial exam Eyes: Appearance normal, extraocular movement intact pupils reactive Neck: Normal visual inspection and supple Respiratory: Normal respiratory effort and able to speak in complete sentences. Clear to auscultation, no stridor Cardiovascular: S1 and S2 RRR Breast exam Benign GI: Normal to inspection. Soft to palpation and nontender Skin: Turgor normal, no acute findings. Neuro: Patient oriented x3, motor sensory intact, balance intact, tandem pass Extremities: Normal to inspection. No swelling. ROM intact . [facility] Medical History History of RSV infection GERD (gastroesophageal reflux disease) History of cellulitis Surgical History No pertinent past surgical history Family History Father Heart disease CVD (cardiovascular disease) Mental health disorder Mother HTN (hypertension) Mental health disorder Maternal Grandmother Cancer of kidney Maternal Grandfather Unknown family medical history Paternal Grandmother Heart disease Paternal Grandfather Heart disease Brother Substance use disorder Sister No problems noted. Social History Housing: House Alcohol intake: current Alcohol intake frequency: a few times a week Patient Tobacco Use Status: Former Tobacco user e-Cigarette/Vaping Use: Never Used service: No Current occupational status: employed Cognitive needs: No Hearing needs: No Vision needs: Yes Questionnaire PHQ-9 Over the last 2 weeks, how often have you been bothered by any of the following problems? 1. Little interest or pleasure in doing things: several days 2. Feeling down, depressed, or hopeless: several days 3. Trouble falling or staying asleep, or sleeping too much: nearly every day 4. Feeling tired or having little energy: nearly every day 5. Poor appetite or overeating: not at all 6. Feeling bad about yourself - or that you are a failure or have let yourself or your family down: several days 7. Trouble concentrating on things, such as reading the newspaper or watching television: several days 8. Moving or speaking so slowly that other people could have noticed. Or the opposite - being so fidgety or restless that you have been moving around a lot more than usual: not at all 9. Thoughts that you would be better off or of hurting yourself in some way: not at all Total score: 10 Depression Screening Interpretation: Positive Depression Screening Follow-up: New Medication prescribed Depression Screening Done: Yes 80356 - PHQ-9 Billing: Yes Source: Developed by Drs. Abdifatah Caputo, Carolyn Murdock, Derek Fiore and colleagues, with an educational ariela from [employer]. Thrive Questionnaire Date Thrive assessed: 01/01/25 I am a: Patient What is your living situation today?: I have a steady place to live Within the past 12 months, did the food you bought not last and you didn't have the money to get more?: Never true Within the past 12 months, did you worry whether your food would run out before you got money to buy more?: Never true Do you have trouble paying for medicines?: No Do you have trouble getting transportation to medical appointments?: No Do you have trouble paying your heating and electricity bill?: No Do you have trouble taking care of your child, family member or friend?: No Do you have trouble with day-to-day activities such as bathing, preparing meals, shopping, managing finances, etc.?: No Are you currently unemployed and looking for a job?: No Are you interested in more education?: No Please select the resources that you would like help with: None Currently or been in a relationship where the following occur: No concerns reported THRIVE Score: 0 AUDIT C Alcohol Use Questionnaire (AUDIT-C) 1. How often do you have a drink containing alcohol?: Monthly or less 2. How many drinks containing alcohol do you have on a typical day when you are drinking?: 1 or 2 3. How often do you have six or more drinks on one occasion?: Never Total Score: 1 Score Reviewed/Action Taken: Yes RENEE-7 AMB Questionnaire RENEE-7 Date RENEE - 7 assessed: 01/01/25 Feeling nervous, anxious, or on edge: 1 = Several days Not being able to stop or control worryin = Several days Worrying too much about different things: 1 = Several days Trouble relaxin = More than half the days Being so restless that it is hard to sit still: 1 = Several days Becoming easily annoyed or irritable: 1 = Several days Feeling afraid as if something awful might happen: 1 = Several days Total RENEE-7 score (0-4 normal; 5-9 mild; 10-14 moderate; 15-21 severe): 8 Source: Developed by Drs. Abdifatah Caputo, Carolyn Murdock, Derek Fiore and colleagues, with an educational ariela from [employer]. RENEE-7 Assessment Billing RENEE-7 Assessment Tool: RENEE-7 Assessment 06428 Physical exam (Primary Care) Vital Signs: Last Vital Signs Pulse 76 01/01/25 15:04 BP 126/80 01/01/25 15:04 Pulse Ox 98 01/01/25 15:04 BMI result Body Mass Index 23.2 Tobacco/Smoking Status: Tobacco use Status Tobacco use date assessed 01/01/25 01/01/25 15:08 Patient Tobacco Use Status Former Tobacco user 01/01/25 15:08 e-Cigarette/Vaping Use Never Used 01/01/25 15:08 PHQ-9: PHQ-9 Score PHQ-9: Total score 10 01/01/25 15:42 Depression Screening Interpretation: Positive Depression Screening Follow-up: New Medication prescribed Thrive Assessment: Date of Thrive Assessment Date Thrive assessed 01/01/25 01/01/25 15:08 Currently or been in a relationship where the following occur: No concerns reported Coding Level of Care Code Est Pt Level 4 (07152) Est Pt Prev Care 40-64y(75615) Diagnoses Encounter for general adult medical examination with abnormal findings Z00.01 Difficulty sleeping G47.9 PMDD (premenstrual dysphoric disorder) F32.81 Anxiety, generalized F41.1 Dysfunctional uterine bleeding N93.8 Chronic GERD K21.9 Environmental allergies Z91.09 Additional Codes RENEE-7 Assessment Billing - RENEE-7 Assessment Tool: RENEE-7 Assessment 77789 ([id number]) PHQ-9 - 58404 - PHQ-9 Billing: Yes ([id number]) Assessment & Plan Assessment & Plan (1) Encounter for general adult medical examination with abnormal findings: Code(s): Z00.01 - Encounter for general adult medical examination with abnormal findings Category: Medical (2) Difficulty sleeping: Code(s): G47.9 - Sleep disorder, unspecified Category: Medical (3) PMDD (premenstrual dysphoric disorder): Code(s): F32.81 - Premenstrual dysphoric disorder Category: Medical (4) Anxiety, generalized: Code(s): F41.1 - Generalized anxiety disorder Category: Medical (5) Dysfunctional uterine bleeding: Code(s): N93.8 - Other specified abnormal uterine and vaginal bleeding Category: Medical (6) Chronic GERD: Code(s): K21.9 - Gastro-esophageal reflux disease without esophagitis Category: Medical (7) Environmental allergies: Code(s): Z91.09 - Other allergy status, other than to drugs and biological substances Category: Medical Plan Insomnia: - The patient reports not sleeping well and only getting a few hours of sleep each night. - She identifies as a light sleeper and is often awakened by her , who also has sleep difficulties, and her 5-year-old child who does not sleep through the night. - Once awake, she has trouble falling back asleep. - She reports social alcohol use, which can disturb the sleep cycle. Perimenopausal disorder: - The patient believes she may be perimenopausal, citing symptoms such as weight gain, fatigue, lack of sleep, and increased irritability before and after her period. - She has never had children. - Her periods are still occurring but have become irregular and are mostly light, with a couple of heavier episodes without abnormal clotting. Gastroesophageal reflux disease: - The patient takes pantoprazole for GERD symptoms, which are well-controlled with the medication. - She notices a return of symptoms if she forgets to take her medication. Urinary tract infection: - The patient reports having a current UTI for which she is taking antibiotics obtained from an urgent care visit. - She notes that she gets UTIs periodically. Skin lesion: - The patient has a mole she has had for a while and would like to have it evaluated by a aircraft sheet metal mechanic. - She is also noticing the development of skin tags. Anxiety disorder: - The patient reports that her anxiety is manageable and she is not currently seeing a therapist. Health Maintenance: - The patient is due for lab work, with her last set completed in 2020. - Her last mammogram was in July of the previous year. - She is due for an DYE HOUSE SUPERVISOR visit; her last was three years ago. Medical History: - Gastroesophageal reflux disease - Recurrent urinary tract infections - Anxiety, managed - Chronic shoulder pain Social History: - Employment: Works as a retail product demo specialist. - Substance use: Reports social alcohol consumption. - Family status: Lives with her and 5-year-old child. - Weight management: Reports weight gain despite her efforts. Family History: - Denies family history of breast problems. Health Maintenance - The patient is due for routine laboratory studies; her last labs were from 2020. - The patient is due for a mammogram; her last one was in July of the prior year. - The patient is due for an DYE HOUSE SUPERVISOR visit; her last one was three years ago. - The patient has deferred her flu vaccine until her current UTI is resolved. [place] [facility] - Patient was seen at an urgent care for her current UTI. - Referral provided to Dr. Keys at [facility] DYE HOUSE SUPERVISOR. - Referral provided to [facility]. Patient Instructions - You will be taking mirtazapine for sleep. I am sending 30 tablets of the 15 mg dose. You can start with half a tablet to see how you feel, and take a full tablet if needed. - For premenstrual irritability, I am sending a prescription for escitalopram . Take one tablet for the 10 days before your period starts. You can start with half a tablet. - Do not start both new medications at the same time. Please start with the mirtazapine for sleep first. - Continue taking your antibiotics for the UTI as directed by the urgent care. - Please get your lab work done after you finish your antibiotics. - I have placed an order for you to get a mammogram. - Please schedule a visit with an DYE HOUSE SUPERVISOR. I have recommended Dr. Keys at [facility]. - Please schedule an appointment with a aircraft sheet metal mechanic to have your skin mole checked. A referral has been sent to [facility]. - Be aware that drinking alcohol can make your sleep worse. - You can wait to get your flu shot until after your UTI has cleared up. - Please schedule a follow-up appointment in about six weeks to review your lab results and see how you are doing on the new medications. Orders: Orders Vitamin D 25-OH (D2 and D3) Today K21.9 - Gastro-esophageal reflux disease without esophagitis, Z00.01 - Encounter for general adult medical examination with abnormal findings, Z91.09 - Other allergy status, other than to drugs and biological substances TSH reflex Free T4 Today K21.9 - Gastro-esophageal reflux disease without esophagitis, Z00.01 - Encounter for general adult medical examination with abnormal findings, Z91.09 - Other allergy status, other than to drugs and biological substances UA CC w/rflx Micro + Cult Today K21.9 - Gastro-esophageal reflux disease without esophagitis, Z00.01 - Encounter for general adult medical examination with abnormal findings, Z91.09 - Other allergy status, other than to drugs and biological substances Complete Blood Count Auto Diff Today K21.9 - Gastro-esophageal reflux disease without esophagitis, Z00.01 - Encounter for general adult medical examination with abnormal findings, Z91.09 - Other allergy status, other than to drugs and biological substances Comprehensive [place]. Panel Fast Today K21.9 - Gastro-esophageal reflux disease without esophagitis, Z00.01 - Encounter for general adult medical examination with abnormal findings, Z91.09 - Other allergy status, other than to drugs and biological substances Lipid Panel Today K21.9 - Gastro-esophageal reflux disease without esophagitis, Z00.01 - Encounter for general adult medical examination with abnormal findings, Z91.09 - Other allergy status, other than to drugs and biological substances MM tomosynthesis screening BI Today Z12.31 - Encounter for screening mammogram for malignant neoplasm of breast Follicle Stimulating Hormone Today F32.81 - Premenstrual dysphoric disorder, N93.8 - Other specified abnormal uterine and vaginal bleeding Lutenizing Hormone Today F32.81 - Premenstrual dysphoric disorder, N93.8 - Other specified abnormal uterine and vaginal bleeding Referrals DYE HOUSE SUPERVISOR Referral Z01.419 - Encounter for gynecological examination (general) (routine) without abnormal findings Dermatology Referral Z12.83 - Encounter for screening for malignant neoplasm of skin Medications: New escitalopram oxalate (Lexapro) 10 days before period 10 mg PO DAILY 30 tabs 0RF mirtazapine 15 mg PO BEDTIME 30 tabs 0RF
[2025-01-01 15:04] VITALS: BP 126/80; PULSE 76; O2SAT 98; BMI 23.2
== END 2025-01-01 15:32 | disposition home or self-care (01) ==
LOC: HO.HMCC 14:55
PROVIDERS: PCP Internal Medicine; Visit Provider Internal Medicine
DX: Z00.01 Encounter for general adult medical examination with abnormal findings (principal); G47.9 Sleep disorder, unspecified; F32.81 Premenstrual dysphoric disorder; F41.1 Generalized anxiety disorder; N93.8 Other specified abnormal uterine and vaginal bleeding; K21.9 Gastro-esophageal reflux disease without esophagitis; Z91.09 Other allergy status, other than to drugs and biological substances

== ENCOUNTER → 2025-01-01 14:54 | Outpatient (BNVA) | payer OTHER, SELFPAY | PROVIDERS: PCP Internal Medicine; Visit Provider Internal Medicine | DX: Z00.01 Encounter for general adult medical examination with abnormal findings (principal); G47.00 Insomnia, unspecified; K21.9 Gastro-esophageal reflux disease without esophagitis; N39.0 Urinary tract infection, site not specified; L98.9 Disorder of the skin and subcutaneous tissue, unspecified; F41.9 Anxiety disorder, unspecified; F32.81 Premenstrual dysphoric disorder; F41.1 Generalized anxiety disorder; N93.8 Other specified abnormal uterine and vaginal bleeding; Z91.09 Other allergy status, other than to drugs and biological substances | CPT/HCPCS: 96127 ==